=== PATIENT | female | born 1985 | race Caucasian/White ===

== ENCOUNTER 2019-01-02 12:47 | Emergency (ER) | payer OTHER, SELFPAY ==
[2019-01-02 12:47] VITALS: BP 92/70; PULSE 98; RESP 20; TEMP 37.2; O2SAT 100; BMI 20.9
--- NOTE | 2019-01-02 13:36 | EKG12_ITS ---
Test Reason : SOB Blood Pressure : / mmHG Vent. Rate : 077 BPM Atrial Rate : 077 BPM P-R Int : 172 ms QRS Dur : 082 ms QT Int : 388 ms P-R-T Axes : 054 -04 003 degrees QTc Int : 439 ms Normal sinus rhythm Low voltage QRS Nonspecific ST abnormality Abnormal ECG Confirmed by DIETER PIERSON, ANNAMARIA ([id number]), editorial assistant JULIETH SNEED ([id number]) on 01/06/2019 2:20:04 PM Referred By: SOFIA Confirmed By:ANNAMARIA GARCIAS MD
--- NOTE | 2019-01-02 13:42 | NURSING ---
NO OLD EKGS
--- NOTE | 2019-01-02 13:42 | ED.VISSUMM ---
- ER Visit Summary Date of Service: 01/02/19 Chief Complaint: Multiple complaints History of Present Illness: The patient is a 33 F presenting with multiple complaints. She complains of cough, rhinorrhea, nausea, vomiting, diarrhea, myalgias. She states she has chest pain when she coughs. Denies shortness of breath. Denies abdominal pain. She has dizziness and lightheadedness. States her children are also sick with similar complaints. She denies fever. Denies other complaints. Physical Examination: Vitals are stable. Patient is afebrile. Alert no acute distress. HEENT exam is unremarkable. Neck is supple. No meningismus Lungs are clear and equal bilaterally. Heart is regular rate and rhythm. Abdomen is soft nontender nondistended. Extremities are unremarkable. Skin is warm and dry. No focal neurologic deficit. Remainder of exam is unremarkable. Emergency Department Course and Treatment: Patient was given IV fluids, Zofran. She states that she has felt dizzy. She believes this is from all the elks-cdo-lxaosvd cold medication she has been taking. She is given one dose of Antivert. Orthostatics are negative. CBC, chemistries unremarkable. Troponin is negative. hCG negative. Influenza negative. CO 2.0. Chest x-ray shows no acute process. On reevaluation, she is resting comfortably. She is given prescription for Tessalon Perles. Advised to follow up with her primary care physician. Advised return to ED for worsening complaints. Disposition: Discharge home Impression: Viral syndrome This note was generated with [employer] dictation software. It may contain incorrect words, spelling, and punctuation that were not noted in review of the chart prior to signing ED Disposition - Plan for ED Patient: Instructions: VIRAL SYNDROME (Adult) Prescriptions: Benzonatate [Tessalon Perle] 200 mg PO TID PRN PRN #20 cap PRN Reason: Cough Prescription Printed Referrals: Rosaura Rivera NP-C [Primary Care Provider] -
--- NOTE | 2019-01-02 13:45 | RAD_ITS ---
STUDY: X-RAY CHEST REASON FOR EXAM: Female, 33 years old. Cough and congestion. TECHNIQUE: AP upright portable view. COMPARISON: None. FINDINGS: The lungs are clear and expanded. There is no demonstrated pleural abnormality. Normal size heart. Normal mediastinum and shanice. Normal visualized pulmonary arteries. Normal visualized aortic arch and descending thoracic aorta. Normal visualized thoracic spine. Normal visualized ribs, clavicles, and shoulders. There is no demonstrated abnormality of the visualized soft tissue structures of the upper abdomen. RAD/Chest 1 View (Portable) IMPRESSION: Normal x-ray examination of the chest. Electronically Signed: Derik Fuentes MD at 14:02 EST , Service support ,
[2019-01-02] MEDS: 0.9% Normal Saline 1,000 ML 1000 ML IV (13:52)
[2019-01-02] MEDS: Ondansetron 4 MG/2 ML Vial IV (13:52)
[2019-01-02 14:00] VITALS: BP 109/91; BP 111/90; BP 119/91; PULSE 78; PULSE 79; PULSE 90
[2019-01-02 14:05] LABS: Absolute Lymphocyte Count 1.85 X10^3/uL (0.83-4.51); Absolute Neutrophil Count 5.8 X10^3/uL (2.0-7.7); Basophil# 0.03 X10^3/uL; Basophil% 0.3 % (0-1); Eosinophil# 0.06 X10^3/uL; Eosinophils% 0.7 % (0-5); Hematocrit 40.3 % (37-47); Hemoglobin 13.2 g/dL (12.0-15.0); Lymphocyte # 1.85 X10^3/ul (4.0); Lymphocyte % 21.5 % (19-41); Mean Corp Hgb Conc 32.8 g/dL (32-36); Mean Corpuscular Hgb 29.7 pg (27.0-32.0); Mean Corpuscular Volume 90.8 fL (81-99); Mean Platelet Vol. 10.6 fl (6.2-12.0); Monocyte# 0.84 X10^3/uL; Monocyte% 9.8 % (0-10); NRBC Flagged by Analyzer 0 % (0-5); Neutrophil % 67.4 % (47-70); Platelet Count 196 K/mm3 (150-450); RBC Distribution Width CV 13.4 % (11.6-14.6); RBC Distribution Width SD 44.6 fl (35.1-43.9); Red Blood Count 4.44 M/mm3 (4.2-5.4); White Blood Count 8.6 K/mm3 (4.4-11.0)
[2019-01-02 14:23] LABS: Internal QC Validated? YES +Cl - CLEAR BKGD; Pregnancy, Serum, hCG Quali. NEGATIVE Negative
[2019-01-02 14:24] LABS: Anion Gap 8 (5-15); BUN 14 mg/dL (7-18); BUN/Creat Ratio 24.5 RATIO (10-20); Calcium,Total 8.7 mg/dL (8.5-10.1); Chloride 105 mmol/L (98-107); Creatinine, Serum 0.57 mg/dL (0.55-1.02); EST Glomerular Filtration Rate 129 mL/min (>60); Est Glom Filt Rate - Afr Amer 156 mL/min (>60); Estimated Creatinine Clearance 130.08 ml/min; Glucose 90 mg/dL (74-106); Potassium 3.7 mmol/L (3.5-5.1); Sodium Level 138 mmol/L (136-145)
[2019-01-02] MEDS: Meclizine HCl 25 MG Tablet PO (15:06)
--- NOTE | 2019-01-02 15:56 | ED.DEP ---
ED Disposition - Plan for ED Patient: Instructions: VIRAL SYNDROME (Adult) Prescriptions: Benzonatate [Tessalon Perle] 200 mg PO TID PRN PRN #20 capsule PRN Reason: Cough Referrals: Rosaura Rivera NP-C [Primary Care Provider] -
[2019-01-02 15:59] VITALS: BP 97/67; PULSE 67; RESP 16; O2SAT 99
== END 2019-01-02 16:15 | disposition home or self-care (01) ==
LOC: ED 13:55
PROVIDERS: Emergency Provider Emergency Medicine; Family Provider Nurse Practitioner Family; PCP Nurse Practitioner Family
DX: B34.9 Viral infection, unspecified (principal); F32.9 Major depressive disorder, single episode, unspecified; Z79.899 Other long term (current) drug therapy
CPT/HCPCS: 71045; 80048; 82375; 84484; 84703; 85025; 87804; 93005; 96361; 96374; 99284; J7030; A4216; J2405

== ENCOUNTER → 2019-09-01 12:00 | Outpatient (CLI) | payer SELFPAY | LOC: LABSPEC 09-02 07:30 | PROVIDERS: PCP Nurse Practitioner Family; Visit Provider Family Medicine Hospice and Palliative Medicine | DX: Z11.59 Encounter for screening for other viral diseases (principal) | CPT/HCPCS: 87635; G2023; U0003 ==

== ENCOUNTER 2021-06-12 10:11 | Outpatient (CLI) | payer OTHER, SELFPAY ==
--- NOTE | 2021-06-12 10:20 | MRI_ITS ---
STUDY: BILATERAL BREAST MR WITHOUT AND WITH CONTRAST REASON FOR EXAM: Female, 35 years old. Family history of malignancy. Negative genetic testing. TECHNIQUE: Multi-sequence multi-echo imaging of both breasts was performed with a dedicated breast coil. T1-weighted and T2-weighted images were performed before the administration of contrast. T1-weighted images were also performed after the intravenous administration of 12ml of Dotarem contrast. COMPARISON: Mammograms dated 08/05/2018 and 09/02/2019. FINDINGS: RIGHT BREAST: The breast tissue is heterogeneously dense with minimal background enhancement. Large area of linear non-mass enhancement in the outer aspect of the right breast extending from approximately the 7 o''clock to the 11 o''clock position and extending from approximately 17 mm behind the nipple to just anterior to the chest wall. Patient also has extensive diffuse calcifications in the right breast on the mammogram dated 09/02/2019. Given this abnormality, it is recommended that the patient undergo MR guided biopsy of the lateral aspect of the right breast for further evaluation. LEFT BREAST: The breast tissue is heterogeneously dense with minimal background enhancement. There are no abnormal enhancing masses or areas of non-mass enhancement in the left breast. There are no enlarged or abnormal lymph nodes. There is no abnormality in the visualized regions of the chest or liver. MRI/Breast Bilateral W/O and W IMPRESSION: Extensive linear non-mass enhancement in the right breast as described. Recommendation is for patient to undergo MR guided biopsy. This report was called to Dr. Lakhani''s office today. If there are any questions about this report, he may contact me on my cell phone number which I left with his orthopaedic physician assistant today. CATEGORY: BIRADS Category 4: Suspicious - Biopsy Should Be Considered. A letter regarding these results will be sent to the patient by the facility within 30 days. Electronically Signed: Bogdan Cannon MD at 13:19 EDT ,
== END 2021-06-12 23:59 | disposition home or self-care (01) ==
LOC: MRI 10:16
PROVIDERS: PCP Nurse Practitioner Family; Visit Provider Obstetrics & Gynecology
DX: N60.11 Diffuse cystic mastopathy of right breast (principal); N60.12 Diffuse cystic mastopathy of left breast; Z80.3 Family history of malignant neoplasm of breast
CPT/HCPCS: 77049; A9575; A4216; C8908

== ENCOUNTER → 2021-06-19 | Outpatient (CLI) | payer OTHER, SELFPAY ==
--- NOTE | 2021-06-19 09:32 | US_ITS ---
STUDY: ULTRASOUND BREAST - RIGHT REASON FOR EXAM: Female, 35 years old. Abnormal MRI TECHNIQUE: Axial and longitudinal images of the RIGHT breast were performed with a high resolution ultrasound transducer. # OF IMAGES: 34 COMPARISON: Diagnostic mammogram earlier today, MRI 06/12/2021 FINDINGS: RIGHT Breast: Heterogeneous background echotexture. Multiple longitudinal and transverse ultrasound images of the upper outer quadrant right breast confirm a 8 mm irregular parallel microlobulated anechoic mass with posterior enhancement consistent with a septated cyst or cluster of small cysts. No malignant appearing mass.: US/Breast Limited Unilateral IMPRESSION: Ultrasound confirms a multiloculated cyst or group of smaller cysts but no malignant mass. Therefore, stereotactic biopsy of the calcifications in the upper outer quadrant right breast is recommended. ASSESSMENT CATEGORY: BIRADS Category 4: Suspicious - Biopsy Should Be Considered. A letter regarding these results will be sent to the patient by the facility within 30 days. Electronically Signed: Rocco Mckinney MD at 11:38 EDT ,
--- NOTE | 2021-06-19 09:32 | BI_ITS ---
MAMMOGRAPHY - BILATERAL DIAGNOSTIC REASON FOR EXAM: Female, 35 years old. ABN MRI PERTINENT HISTORY: Non-contributory. TECHNIQUE: Digital examination. Mediolateral oblique (MLO) and craniocaudad (CC) views of both breasts were obtained. CAD: CAD was performed on this study. COMPARISON: MRI 06/12/2021 FINDINGS: Breast Composition: The breasts are extremely dense, which lowers the sensitivity of mammography. No dominant mass. Regional pleomorphic calcifications in the upper outer quadrant of the right breast in the same area as the abnormal contrast enhancement noted on MRI worrisome for ductal carcinoma in situ. Stereotactic breast biopsy is recommended. Ultrasound will also be obtained. No suspicious calcifications left breast. No other significant abnormalities are identified. BI/DIAG MAMM W/CAD, BILAT IMPRESSION: Further ultrasonographic evaluation recommended, as described above. ASSESSMENT CATEGORY: BIRADS Category 0: Incomplete. Need additional imaging evaluation. A letter regarding these results will be sent to the patient by the facility within 30 days. FOLLOW UP RECOMMENDATION: Ultrasound Recommended. (I) Approximately 10% of breast cancers are not detected by mammography. A normal mammogram should not delay biopsy of a clinically suspicious abnormality. Electronically Signed: Rocco Mckinney MD at 10:33 EDT ,
== END | disposition home or self-care (01) ==
LOC: OPBI 09:28
PROVIDERS: PCP Nurse Practitioner Family; Visit Provider Obstetrics & Gynecology
DX: R92.2 Inconclusive mammogram (principal)
CPT/HCPCS: 76642; 77062; 77066; G0279

== ENCOUNTER → 2021-06-27 | Outpatient (CLI) | payer OTHER, SELFPAY ==
--- NOTE | 2021-06-27 13:20 | BRBX_PTH ---
PATIENT: ARLEY CAMPBELL LOC: [facility] U#:[id number] AGE/SX: 35/F ROOM: RE06/27/[address]: Dr. Farrukh Fleming MD : 1985 BED: DIS: 06/27/2021 SPEC #: [id number] RECD: 06/27/21 14:21 STATUS: ARACELY SHUKLA #: [id number] EUGENIO: 06/27/21 13:[address]: Farrukh Fleming DEPT: SURGICAL PATHOLOGY RECD BY: Luciana Gayle ENTERED: 06/28/21 10:05 SP TYPE: BREAST BX OTHR DR: AMY Calderón Tissues: Right breast, NOS Procedures: Surgery Specimen Level IV HEADER OPERATION: Right breast Stereotactic Needle Core Biopsy PRE-OP DIAGNOSIS: Right UOQ microcalcifications TISSUE SUBMITTED: Right breast core tissue ISCHEMIC TIME: 1 minute FIXATION TIME: 30.5 hours MICROSCOPIC DIAGNOSIS Right breast, upper outer quadrant, stereotactic core biopsy: Fibrocystic change with associated Banal microcalcifications. Focal intraductal hyperplasia without atypia. No evidence of malignancy. AM:leighann 06/29/2021 MICROSCOPIC DESCRIPTION Slides are reviewed. GROSS DESCRIPTION Received in fixative is one container labeled with the patient's name and designated right breast. The specimen consists of multiple elongated fragments of werner-yellow fibroadipose tissue that in aggregate measure 5 x 3 x 0.3 cm. The entire specimen is submitted in two cassettes. / SJ:leighann 06/28/2021 TC:5 CPT: 43313
--- NOTE | 2021-06-27 13:31 | PCM.OPRPT ---
Problems Associated Problem List Diagnoses (1) Abnormal mammogram: Report of Operation Date of Procedure: 06/27/21 Pre-Operative Diagnosis: Abnormal mammogram of the right breast Post-Operative Diagnosis: Abnormal mammogram of the right breast Surgery/Procedure Performed:: Stereotactic guided core needle biopsy of the right breast with placement of clip Specimen's removed: Right breast biopsy Description of Procedure: Patient was placed in the stereotactic table and the right breast was prepped. Stereotactic images were obtained and calcifications were localized. Next the breast was injected with local anesthetic and then a small reina was made with a scalpel. The needle was placed and fired into the breast. Several biopsies were obtained and then a clip was placed in the breast. The needle was removed and images were obtained to show that the clip was in correct position. Next the patient was removed in the stereotactic table and pressure was held and a Steri-Strip and bandage were placed. Patient tolerated procedure well.
== END | disposition home or self-care (01) ==
LOC: BIRAD 12:27
PROVIDERS: PCP Nurse Practitioner Family; Referring Provider Surgery; Visit Provider Surgery
DX: R92.0 Mammographic microcalcification found on diagnostic imaging of breast (principal); N60.11 Diffuse cystic mastopathy of right breast
CPT/HCPCS: 19081; 88305; J7050

== ENCOUNTER 2021-08-10 15:53 | Observation (INO) | payer OTHER, SELFPAY ==
[2021-08-10] VITALS (20 sets, daily range): BP systolic 86–109; BP diastolic 57–82; PULSE 50–74; RESP 14–18; TEMP 36.1–37.2; O2SAT 96–100; BMI 22.4
[2021-08-10] MEDS: Lactated Ringers 1,000 ML 15 ML IV ×2 (12:00→12:13)
[2021-08-10 12:13] LABS: Internal QC Validated? YES +Cl - CLEAR BKGD; Pregnancy, Urine Negative Negative
--- NOTE | 2021-08-10 12:37 | HP.PCM.OB_ITS ---
History and Physical Date of Admission: 08/10/21 Surgical History and Physical Date: 08/10/2021 Name: LILIANA BUITRAGO Age: 35 Date of : 1985 Liliana Buitrago, a 35 year old female 2 0 1 0 2, presents for Laparoscopic bilateral salpingectomy on 08/10/21 at 1:00. -- Liliana is having a laproscopic bilateral salpingectomy on 08/10/21. Medications and allergies are up to date. No changes in medical or surgical hx. Consents are signed. MEDICATIONS HISTORY: Patient is also takin. Celexa 20 mg tablet, One pill by mouth once a day 2. hydroxyzine HCl 10 mg tablet, qd 3. Vitamin D3 10 mcg (400 unit) tablet ALLERGIES: No Known Drug Allergies Infections - Chicken pox Illnesses - GERD and IBS Accidents - no injuries of consequence Hospitalizations - childbirth depression; Review of Systems: GENERAL - Denies fever, or chills SKIN - Denies skin changes EYES - Denies visual changes EARS - Denies difficulty hearing NOSE - Denies nasal congestion or bleeding MOUTH - Denies sore throat or difficulty swallowing NECK - Denies pain or swelling RESPIRATORY - Denies shortness of breath or wheezing CARDIOVASCULAR - Denies palpitations or chest pain GASTROINTESTINAL - Denies nausea, vomiting, diarrhea, constipation GENITOURINARY - Denies dysuria, frequency of urination, incontinence of urine MUSCULOSKELETAL - Denies joint or muscle pain NEUROLOGICAL - Denies localized numbness or weakness PSYCHIATRIC - Denies depression or anxiety ENDOCRINE - Denies heat or cold intolerance, weight loss or gain HEMATO-IMMUNOLOGIC - Denies excessive bleeding with cuts SOCIAL HISTORY: Alcohol Use - denies drinking Smoking - used to smoke but quit Diet - gluten free Lifestyle - Exercise - active Seat Belt Use - always Employer - [employer] Job Description - STERILIZER MACHINE OPERATOR Illicit Drug Use - denies use of street drugs Sexual Activity - ACTIVE ONE PARTNER Residence - owns a home Hours Worked - 40 Spouse-Sig Other Name - Marly Spouse-Sig Other Occupation - insurance billing clerk for [employer] Children Name(s) - Driss Mckinney Control - Plan B/ condoms FAMILY HISTORY: MENSTRUAL HISTORY: LMP Known?- DefiniteAmount/Duration - 3-7 days, Regularity - regular, LMP - 08/02/21, Age Onset Menarche - 10 PAST PREGNANCIES: Total Pregnancies - 3; Full Term Pregnancies - 2; Premature - 0; Abortions, Ind uced - 0; Abortions, Spontaneous - 1; Ectopics - 0; Multiple Births - 0; Living Children - 2 SURGICAL HISTORY: 1. none ; - PHYSICAL EXAM BP- 122/82 Sitting, Right arm, regular cuff Weight- 139.50329 lbs Height- 65.5 inch BMI:[id number] CONSTITUTIONAL - NAD, well nourished, and well developed SKIN - No rash, lesions, or ulcers HEENT - Normocephalic, PERRLA, EOMI NECK - No nodes, no nuchal rigidity and thyroid normal size and texture BREAST - No dominant masses, no tenderness, no axillary adenopathy, no nipple discharge, no skin changes ABDOMEN - Without hepatosplenomegaly, distention, masses, rebound, or guarding; normal bowel sounds; no hernias EXTREMITIES - No edema or calf tenderness NEUROLOGICAL - Cranial nerves II-XII grossly intact PSYCHIATRIC - A and O to time, place, person, mood and affect External Genital Vagina - non-tender without lesions Urethra/Urethral Meatus - non-tender Bladder - non-tender Vagina - vaginal streeter are pink and moist without loss of rugae and no evidence of atrophy Cervix - without cervical motion tenderness and has normal size and features without evident lesions Uterus - 5-6 cm in size, mobile and nontender Adnexa - clear without masses or tenderness ASSESSMENT/PLAN: 1. Encounter For Other Preprocedural Examination Scheduled for laparoscopic bilateral tubal ligation for permanent sterilization Educated patient on risk benefits alternatives discussed, patient stated understanding and wished to proceed. All questions were answered and consent was signed Discussed postop recovery Follow-up 2 weeks postoperatively
--- NOTE | 2021-08-10 13:23 | PCM.DC ---
Discharge Instructions Diet Discharge Diet: No restrictions Activity Discharge Activity: Return to Normal Activity, May Drive, May Shower and - (no tub baths for 2 weeks) May resume sexual activity in: 4-6 weeks Lifting Restrictions: no lifting over 25 pounds Dressing / Incision Call your doctor if your incision/area has: Continuous Slow Oozing and Foul Smelling Discharge Call your doctor if you observe: Fever of 101 or Higher, Shortness of breath and Chest pain Follow Up Care Please Follow Up With: Patrick Lakhani MD When: 2 weeks postoperatively Test Results: Test results from this visit will be discussed in further detail at your follow-up appointment, if applicable. Discharge Plan Admission Attending Provider: Patrick Lakhani Primary Care Provider: Rosaura Rivera NP Discharge Orders/Prescriptions Prescriptions: No Action omeprazole 20 mg capsule,delayed release(DR/EC) 20 mg PO DAILY citalopram [Celexa] 20 MG tablet 40 mg PO DAILY hydroxyzine HCl 10 MG tablet 10 mg PO PRN PRN (Reason: Anxiety) cholecalciferol (vitamin D3) 1,250 mcg (50,000 unit) capsule 1,250 mcg PO QWEEK Label Comments: take 1 capsule by mouth every week Referrals / Follow Up: Rosaura Rivera NP, MIXED SIGNAL DESIGN ENGINEER-C [Primary Care Provider] - Disposition Disposition (needs filled in before D/C Order can be placed): Home, Self Care
--- NOTE | 2021-08-10 13:24 | OP.PCM_ITS ---
Report of Operation Date of Procedure: 08/10/21 Pre-Operative Diagnosis: Desires permanent sterilization Post-Operative Diagnosis: Desires permanent sterilization Surgery/Procedure Performed:: Laparoscopic bilateral salpingectomy Description of Surgical Findings:: Surgeon: Patrick Lakhani MD Anesthesia: General EBL: 10 cc Urine output: 100 cc IV fluids: 900 cc Complications: None Specimen: Bilateral fallopian tubes Findings: Normal uterus, tubes, and ovaries. Consent: Patient desires permanent sterilization for laparoscopic bilateral salpingectomy. Patient understands the risk of the procedure include but are not limited to visceral or vascular injury, prolonged hospitalization, blood loss and need for transfusion, reoperation. Patient stated understanding and wished to proceed. All questions were answered and consent was signed. Procedure: Patient was brought back to the OR where general anesthesia was found to be adequate. Patient was prepared and draped in a dorsolithotomy position with yellowfin stirrups. A weighted speculum is placed in the posterior aspect of the vagina. Cervical dilators were used to dilate the cervix. Uterine manipulator was placed. Varies needle was inserted at the umbilicus water safety test was passed. 5 mm infraumbilical midline incision and trocar were inserted under direct visualization. Laparoscope was inserted and above findings were noted. Left lower quadrant 5 mm trocar placed under direct visualization. 8 mm right lower quadrant trocar placed under direct visualization. Using an atraumatic grasper and a LigaSure device the left fallopian tube was identified to the fimbria and the mesosalpinx was cut and cauterized. Left fallopian tube was removed from the abdominal cavity and sent to pathology. In a similar fashion the right fallopian tube was identified out to the fimbriae and the mesosalpinx was cut and cauterized. Right fallopian tube was removed from the abdominal cavity and sent to pathology. Good hemostasis was noted. Abdomen was desufflated trochars were removed under direct visualization. Good hemostasis was noted. Trocar sites were closed in a subcutaneous fashion. All counts were correct x2. Patient tolerated procedure well and was brought to recovery in stable condition. media planner / buyer: Angela Gonzales
--- NOTE | 2021-08-10 13:30 | FALS_PTH ---
PATIENT: ARLEY CAMPBELL LOC: [facility] U#:[id number] AGE/SX: 35/F ROOM: [facility] [place]/10/[address]: Dr. Patrick Lakhani MD : 1985 BED: 1 DIS: 08/11/2021 SPEC #: [id number] RECD: 08/10/21 14:06 STATUS: ARACELY SHUKLA #: [id number] EUGENIO: 08/10/21 13:[address]: Patrick Lakhani DEPT: SURGICAL PATHOLOGY RECD BY: Luciana Gayle ENTERED: 08/11/21 08:22 SP TYPE: FALL TUBES OTHR DR: AMY Calderón Tissues: Fallopian tube Procedures: Surgery Specimen Level II HEADER OPERATION: Laparoscopic salpingectomy PRE-OP DIAGNOSIS: Sterilization TISSUE SUBMITTED: Bilateral fallopian tubes MICROSCOPIC DIAGNOSIS Bilateral fallopian tubes, salpingectomy: Bilateral fallopian tubes, no pathologic diagnosis. MOODY:leighann 08/14/2021 MICROSCOPIC DESCRIPTION Slides are reviewed. GROSS DESCRIPTION Received in fixative is one container labeled with the patient's name and designated bilateral fallopian tubes. The specimen consists of bilateral fallopian tubes including fimbrial ends measuring 4.5 cm in length and up to 0.6 cm in diameter and 4.5 cm in length and up to 1 cm in diameter. The fallopian tubes are not identified as right or left. Sections reveal unremarkable cut surfaces. Visual Designer sections are submitted in two cassettes with each cassette containing one fallopian tube. / MOODY:leighann 08/11/2021 TC:4 CPT: 95919 x2
--- NOTE | 2021-08-10 15:36 | PCM.PN.BLA ---
Progress Note Called by nursing with note of hematoma on right lower quadrant incision. Patient seen and examined. Patient AOA x3, denies weakness, denies dizziness, denies chest pain or shortness of breath. Vital signs stable. Small amount of bruising right lower quadrant incision but palpable subcutaneous hematoma 8 cm circumferentially. Patient with minimal tenderness upon palpation. Site demarcated well continue evaluate expansion. At this time with patient asymptomatic and vital signs stable we will continue to monitor. Suggested inpatient stay overnight to monitor
[2021-08-10 16:46] LABS: Hemoglobin 11.9 g/dL (12.0-15.0)
[2021-08-10] MEDS: Acetaminophen 500 MG Tablet 1000 MG PO ×2 (18:02→23:40)
[2021-08-10] MEDS: Ketorolac 30 MG/ML Syringe IV ×2 (18:03→23:40)
--- NOTE | 2021-08-10 18:45 | PCM.PN.BLA ---
Progress Note Patient seen and examined. Remained stable. Asymptomatic. Vital signs stable. Exam and demarcations of hematoma are unchanged. Hemoglobin stable on initial H&H. We will continue overnight observation
[2021-08-11 01:47] VITALS: BP 96/58; PULSE 56; RESP 16; TEMP 36.9; O2SAT 100
[2021-08-11] MEDS: Ketorolac 30 MG/ML Syringe IV (05:29)
[2021-08-11] MEDS: Acetaminophen 500 MG Tablet 1000 MG PO (05:29)
[2021-08-11 06:29] LABS: Hematocrit 33.2 % (37-47); Hemoglobin 10.9 g/dL (12.0-15.0)
--- NOTE | 2021-08-11 06:45 | DCINST_ITS ---
Discharge Instructions Diet Discharge Diet: No restrictions Activity Discharge Activity: May Drive, May Shower and - (no tub baths for 2 weeks) May resume sexual activity in: 4-6 weeks Lifting Restrictions: no lifting over 25 pounds Dressing / Incision Call your doctor if your incision/area has: Continuous Slow Oozing and Foul Smelling Discharge Call your doctor if you observe: Fever of 101 or Higher, Shortness of breath and Chest pain Follow Up Care Please Follow Up With: Patrick Lakhani MD When: 1 week postoperatively Test Results: Test results from this visit will be discussed in further detail at your follow- up appointment, if applicable. Discharge Plan Admission Admit Date/Time: 08/10/21 15:53 Attending Provider: Patrick Lakhani Primary Care Provider: Rosaura Rivera NP Discharge Orders/Prescriptions Prescriptions: New oxycodone 5 mg capsule 5 mg PO Q6H PRN (Reason: pain (scale score 7-10)) 4 Days Qty: 16 0RF ondansetron HCl 4 mg tablet 4 mg PO Q6H PRN (Reason: nausea and vomiting) Qty: 30 1RF Continued omeprazole 20 mg capsule,delayed release(DR/EC) 20 mg PO DAILY citalopram [Celexa] 20 MG tablet 40 mg PO DAILY hydroxyzine HCl 10 MG tablet 10 mg PO PRN PRN (Reason: Anxiety) cholecalciferol (vitamin D3) 1,250 mcg (50,000 unit) capsule 1,250 mcg PO QWEEK Label Comments: take 1 capsule by mouth every week Referrals / Follow Up: Rosaura Rivera NP, SENIOR MANAGER ASSET PROTECTION-C [Primary Care Provider] - Disposition Discharge Orders: Discharge Patient (Routine); Ordered 08/10/21 Ordered By: Dr. Patrick Lakhani
--- NOTE | 2021-08-11 06:46 | PN.OBGYN_ITS ---
Subjective Subjective no overnight complaints. pain well controlled. Denies dizziness, weakness, chest pain, SOB Objective Data Objective Data Vital Signs: Vital Signs Temp Pulse Resp BP Pulse Ox 98.4 F 56 L 16 96/58 L 100 08/11/21 01:47 08/11/21 01:47 08/11/21 01:47 08/11/21 01:47 08/11/21 01:47 Oxygen Delivery Method Room Air Weight: 138 lb 14.259 oz Body Mass Index (BMI) 22.4 Intake & Output: Intake and Output for Last 24 Hours 08/09/21 08/10/21 08/11/21 23:59 23:59 23:59 Intake Total 700 / 700 Output Total 200 / 200 Balance -200 / 200 700 / 700 Lab / Micro Data Result Diagrams: 08/11/21 05:26 Labs: Laboratory Results - last 24 hr 08/10/21 12:00: Urine Test Negative 08/10/21 16:25: Hgb 11.9 L, Hct 36.0 L 08/11/21 05:26: Hgb 10.9 L, Hct 33.2 L Physical Exam Const alert, oriented x3, no apparent distress, average body habitus, healthy carson earing and well nourished HEENT normocephalic Eyes PERRL Neck full ROM Resp normal respiratory effort, no retractions, no use of accessory muscles and clear to auscultation bilaterally GI GI Narrative: soft, nontender, nondistended. No change in RLQ incision demarcation, slight reduction Extremity normal to inspection, full ROM and no clubbing, cyanosis or edema Psych mental status grossly normal, affect normal, speech normal and activity/motor behavior normal Assessment & Plan (1) Acute postoperative pain: PLAN: POD#1 s/p laparoscopic tubal ligation with RLQ incision hematoma. Pt asymptomatic, VSS. hematoma reducing. Pt ambulating with ease. pain well controlled. okay to discharge home
[2021-08-11 07:10] VITALS: O2SAT 96
[2021-08-11 07:30] VITALS: BP 93/60; PULSE 54; RESP 14; TEMP 36.6; O2SAT 100
== END 2021-08-11 08:19 | disposition home or self-care (01) ==
LOC: SDC 16:08 → MS3 08-11 07:22
PROVIDERS: Anesthesiology; Admitting Provider Obstetrics & Gynecology; PCP Nurse Practitioner Family; Visit Provider Obstetrics & Gynecology
PROC: (CPT 58661; principal; 2021-08-10 13:15)
DX: Z30.2 Encounter for sterilization (principal); Z87.891 Personal history of nicotine dependence; K21.9 Gastro-esophageal reflux disease without esophagitis; K58.9 Irritable bowel syndrome, unspecified; Z79.899 Other long term (current) drug therapy; F32.A Depression, unspecified; L76.32 Postprocedural hematoma of skin and subcutaneous tissue following other procedure
CPT/HCPCS: 58661; 00840; 36415; 81025; 85014; 85018; 86304; 88302; 96374; 96376; 99218; 99251; 99252; J7120; G0378; G0463; J2405